=== PATIENT | female | born 1995 | race Caucasian/White ===

== ENCOUNTER 2018-03-14 13:09 | Emergency (ER) | payer OTHER ==
--- NOTE | 2018-03-14 14:31 | UC ---
Laceration HPI - HPI Summary HPI Summary: 22 y/o female presents to the urgent care c/o great right toe injury syustained this am at 0100 - History Of Current Complaint Chief Complaint: UCLaceration Stated Complaint: TOE LAC Time Seen by Provider: 03/14/18 14:22 Hx Obtained From: Patient Hx Last Menstrual Period: 12/17/17 Pain Intensity: 2 - Allergies/Home Medications Allergies/Adverse Reactions: Allergies Allergy/AdvReac Type Severity Reaction Status Date / Time No Known Allergies Allergy Verified 03/14/18 15:04 Home Medications: Home Medications Acetaminophen TAB* [Tylenol TAB*] 650 mg PO Q4H PRN 03/14/18 [History Confirmed 03/14/18] Ranitidine HCl (Nf) [Zantac] 75 mg PO BID PRN 03/14/18 [History Confirmed ] Spironolactone TAB* [Aldactone TAB*] 100 mg PO DAILY 03/14/18 [History Confirmed 03/14/18] PMH/Surg Hx/FS Hx/Imm Hx - Surgical History Surgical History: None - Social History Alcohol Use: Rare Substance Use Type: None Smoking Status (MU): Never Smoked Tobacco Physical Exam - Summary Physical Exam Summary: Vital Signs Reviewed: Yes General: well developed, well nourished female adolescent sitting in the examining table w/o any apparent distress Eye Exam: Normal Eyes: Positive: Conjunctiva Clear - PERRLA, EOMI, fundi grossly normal ENT: Positive: Normal ENT inspection, Hearing grossly normal, Pharynx normal, TMs normal Neck: Positive: Supple, Nontender, No Lymphadenopathy Respiratory: Positive: Chest non-tender, Lungs clear, Normal breath sounds, No respiratory distress Cardiovascular: Positive: RRR, No Murmur, Pulses Normal, Brisk Capillary Refill Abdomen Description: Positive: Nontender, No Organomegaly, Soft. Negative: CVA Tenderness (R), CVA Tenderness (L) Bowel Sounds: Positive: Present Musculoskeletal: Positive: Strength Intact, ROM Intact, No Edema Neurological: Positive: Alert, Muscle Tone Normal Psychological Exam: Normal Skin: Positive:Lateral side of RT elbow near the lateral epicondyle with a linear superficial laceration about 2.5cm in size, bleeding, no foreign body observed. mild tenderness to palpation, mild ecchymosis around elbow. FROM of RT arm, sensation intact, capillary refill brisk, and pulses WNL. Triage Information Reviewed: Yes Vital Signs: Initial Vital Signs Temp 97.4 F 03/14/18 13:18 Pulse 97 03/14/18 13:18 Resp 16 03/14/18 13:18 BP 96/67 03/14/18 13:18 Pulse Ox 100 03/14/18 13:18 Laceration Repair - Laceration Repair 1 Description: Linear - semilunar in shape avulsed Laceration Size After Repair: Length (cm) - 1.5 cm in shape Modified For Repair: No Cleansing Completed Via Routine Prep: Yes Irrigation With Pressure Irrigation Device: Yes Closure Material: Skin Adhesive, SteriStrips - 5 Closure Method: Single Layer Suture Of: Skin Discharge - Discharge Plan Condition: Stable Disposition: HOME Patient Education Materials: Laceration (ED), Skin Adhesive Care (ED) Referrals: [facility] [place] - [place] [facility] [Primary Care Provider] - 3 Days [facility] [Outside] Additional Instructions: 1-Please Keep wound clean and dry and cover 2-Take Ibuprofen or Tylenol PO q6-8hrs prn for pain or swelling. 3- If you develop fever or redness around your toe please return to the Urgent care or f/u w/ your PCP for further treatment - Billing Disposition and Condition Condition: STABLE Disposition: Home
[2018-03-14] MEDS ORDERED: Lidocaine 1%* 5 ML VIAL INJ ONE (14:39)
[2018-03-14] MEDS ORDERED: Tetan/Diph/Pertus SYR(Tdap)* 0.5 ML SYR(BOOSTRIX) use SYR IM ONE (15:32)
[2018-03-14 15:36] VITALS: BP 123/67
== END 2018-03-14 16:00 | disposition home or self-care (01) ==
LOC: UCEAST 13:09
DX: S91.111A Laceration without foreign body of right great toe without damage to nail, initial encounter (principal); X58.XXXA Exposure to other specified factors, initial encounter; Y93.9 Activity, unspecified; Y92.9 Unspecified place or not applicable; Z23 Encounter for immunization
CPT/HCPCS: 12001; 90715; 99211; G0463